=== PATIENT | female | born 1985 | race Caucasian/White ===

== ENCOUNTER → 2018-01-07 14:30 | Outpatient (CLI) | payer SELFPAY ==
[2018-01-11 13:49] LABS: HPV Reflexed? NOT INDICATED
== END ==
PROVIDERS: Referring Provider Obstetrics & Gynecology; Visit Provider Obstetrics & Gynecology
DX: Z12.4 Encounter for screening for malignant neoplasm of cervix (principal)
CPT/HCPCS: 87624; 88175; G0145